=== PATIENT | female | born 1995 ===

== ENCOUNTER 2018-07-17 01:55 | Emergency (ER) | payer OTHER ==
[2018-07-17 02:03] VITALS: BMI 29.2
[2018-07-17 02:09] VITALS: RESP 18; TEMP 98.4; O2SAT 99
--- NOTE | 2018-07-17 02:50 | ED PDOC ---
HPI: General Adult Time Seen by Provider: 07/17/18 02:10 Chief Complaint (Nursing): Anxiety Chief Complaint (Provider): sob/cough x 1 month History Per: Patient (22 y/o female here with cough x 1 month associated with sob. Patient states she has a h/o asthma but has been using other peoples' inhalers. Denies any fevers/chills.) Past Medical History Reviewed: Historical Data, Nursing Documentation, Vital Signs Vital Signs: Last Vital Signs Temp 98.4 F 07/17/18 02:03 Pulse 103 H 07/17/18 02:03 Resp 18 07/17/18 02:03 BP 140/80 07/17/18 02:03 Pulse Ox 99 07/17/18 02:03 - Medical History PMH: Anxiety, Asthma, Gastritis - Family History Family History: States: Unknown Family Hx - Home Medications Home Medications: Ambulatory Orders Medication Instructions Recorded Ciprofloxacin HCl [Cipro] 500 mg PO BID #20 tab 05/07/17 Naproxen [Naprosyn] 500 mg PO Q12H #20 tab 05/07/17 Albuterol Sulfate [Proair Hfa] 2 puff IH Q6H #1 inh 10/13/17 Famotidine [Pepcid] 20 mg PO BID #28 tab 10/13/17 Ondansetron [Zofran] 4 mg PO Q8H #9 tab 10/13/17 Albuterol Sulfate [Proair Hfa] 2 puff IH Q6H PRN #1 inh 01/26/18 Amoxicillin/Clavulanate [Augmentin 1 tab PO BID #20 tab 01/26/18 500 MG-125 MG] Naproxen [Anaprox DS] 550 mg PO BID PRN #30 tab 01/26/18 Acetaminophen [Tylenol Extra 1,000 mg PO Q6 PRN #100 tablet 01/31/18 Strength] Famotidine [Pepcid] 40 mg PO DAILY PRN #14 tab 01/31/18 Nitrofurantoin Macrocrystals 1 cap PO BID #14 cap 01/31/18 [Macrobid] Ondansetron ODT [Zofran ODT] 1 odt PO Q6 PRN #20 odt 01/31/18 Levalbuterol Tartrate [Xopenex Hfa] 2 puff IH Q6 PRN #1 hfa.aer.ad 07/17/18 Prednisone [Deltasone] 2 tab PO DAILY #10 tablet 07/17/18 - Allergies Allergies/Adverse Reactions: Allergies Allergy/AdvReac Type Severity Reaction Status Date / Time shellfish derived Allergy RASH Verified 07/17/18 02:02 Review of Systems ROS Statement: Except As Marked, All Systems Reviewed And Found Negative Respiratory: Positive for: Cough Physical Exam - Reviewed Nursing Documentation Reviewed: Yes Vital Signs Reviewed: Yes - Physical Exam Appears: Positive for: Well, Non-toxic, No Acute Distress Head Exam: Positive for: ATRAUMATIC, NORMAL INSPECTION, NORMOCEPHALIC Skin: Positive for: Normal Color, Warm, DRY Eye Exam: Positive for: EOMI, Normal appearance, PERRL ENT: Positive for: Normal ENT Inspection Neck: Positive for: Normal, Painless ROM Cardiovascular/Chest: Positive for: Regular Rate, Rhythm Respiratory: Positive for: CNT, Normal Breath Sounds Gastrointestinal/Abdominal: Positive for: Normal Exam, Soft Back: Positive for: Normal Inspection Extremity: Positive for: Normal ROM Neurologic/Psych: Positive for: Alert, Oriented - ECG O2 Sat by Pulse Oximetry: 99 - Progress ED Course And Treament: tylenol 975mg x 1 dose for headache Disposition - Clinical Impression Clinical Impression: Cough, Asthma - Patient ED Disposition Is Patient to be Admitted: No - Disposition Referrals: [facility] [Outside] Disposition: Routine/Home Disposition Time: 02:48 Condition: FAIR Prescriptions: Levalbuterol Tartrate [Xopenex Hfa] 2 puff IH Q6 PRN #1 hfa.aer.ad PRN Reason: Cough Prednisone [Deltasone] 2 tab PO DAILY #10 tablet Instructions: Asthma, Adult (DC), Cough, Adult (DC)
[2018-07-17 04:03] VITALS: BP 119/70; PULSE 75
== END 2018-07-17 03:57 | disposition home or self-care (01) ==
LOC: H.ER 01:55
DX: R05 Cough (principal); J45.909 Unspecified asthma, uncomplicated

== ENCOUNTER 2018-08-16 20:43 | Emergency (ER) | payer OTHER ==
[2018-08-16 20:44] VITALS: BMI 29.2
[2018-08-16 20:51] VITALS: BP 135/81; PULSE 79; RESP 17; TEMP 98.3; O2SAT 99
--- NOTE | 2018-08-16 21:56 | ED PDOC ---
HPI: Influenza Time Seen by Provider: 08/16/18 21:15 Chief Complaint: Cough, Cold, Congestion Chief Complaint (Provider): Cough, Cold, Congestion History Per: Patient Exam Limitations: no limitations Onset/Duration Of Symptoms: Days (x2 months) Hx Influenza Vaccination: No Additional complaint(s):: Chanda Gold is a 22 year old female who has a past medical history of asthma, who presents to the emergency department complaining of cough, onset x2 months, right shoulder pain and lower back pain. Patient states she was seen in ED x1 month ago and was treated for asthma exacerbation with some improvements in the cough but it still persists. She also reports to have occasional chest pain with coughing, intermittent shortness of breath usually related to her anxiety, subjective fever this morning and chills. Patient also complains of right shoulder pain that began x2 days ago after attempting to lift a bag. She was unable to raise arm past shoulder level and she has not taken any medications for the pain. Patient further endorses lower back pain since yesterday that is worse with bending forward. She states its a chronic issue that got worse since yesterday. Denies sputum production, night sweats, nausea, vomiting, diarrhea numbness, tingling in upper or lower extremities or sick contact. PMD: No provider Past Medical History Reviewed: Historical Data, Nursing Documentation, Vital Signs Vital Signs: Last Vital Signs Temp 98.3 F 08/16/18 20:46 Pulse 79 08/16/18 20:46 Resp 17 08/16/18 20:46 BP 135/81 08/16/18 20:46 Pulse Ox 99 08/16/18 20:46 - Medical History PMH: Anxiety, Asthma, Gastritis - Surgical History Surgical History: No Surg Hx - Family History Family History: States: Unknown Family Hx - Home Medications Home Medications: Ambulatory Orders Medication Instructions Recorded Ciprofloxacin HCl [Cipro] 500 mg PO BID #20 tab 05/07/17 Naproxen [Naprosyn] 500 mg PO Q12H #20 tab 05/07/17 Albuterol Sulfate [Proair Hfa] 2 puff IH Q6H #1 inh 10/13/17 Famotidine [Pepcid] 20 mg PO BID #28 tab 10/13/17 Ondansetron [Zofran] 4 mg PO Q8H #9 tab 10/13/17 Albuterol Sulfate [Proair Hfa] 2 puff IH Q6H PRN #1 inh 01/26/18 Amoxicillin/Clavulanate [Augmentin 1 tab PO BID #20 tab 01/26/18 500 MG-125 MG] Naproxen [Anaprox DS] 550 mg PO BID PRN #30 tab 01/26/18 Acetaminophen [Tylenol Extra 1,000 mg PO Q6 PRN #100 tablet 01/31/18 Strength] Famotidine [Pepcid] 40 mg PO DAILY PRN #14 tab 01/31/18 Nitrofurantoin Macrocrystals 1 cap PO BID #14 cap 01/31/18 [Macrobid] Ondansetron ODT [Zofran ODT] 1 odt PO Q6 PRN #20 odt 01/31/18 Levalbuterol Tartrate [Xopenex Hfa] 2 puff IH Q6 PRN #1 hfa.aer.ad 07/17/18 Prednisone [Deltasone] 2 tab PO DAILY #10 tablet 07/17/18 Cyclobenzaprine [Cyclobenzaprine 10 mg PO Q8 PRN 5 Days tab 08/16/18 HCl] Ibuprofen [Motrin Tab] 600 mg PO Q6H PRN 7 Days tab 08/16/18 - Allergies Allergies/Adverse Reactions: Allergies Allergy/AdvReac Type Severity Reaction Status Date / Time shellfish derived Allergy RASH Verified 07/17/18 02:02 Review of Systems ROS Statement: Except As Marked, All Systems Reviewed And Found Negative Constitutional: Positive for: Fever, Chills. Negative for: Sweats Respiratory: Positive for: Cough. Negative for: Sputum Gastrointestinal: Negative for: Nausea, Vomiting, Diarrhea Musculoskeletal: Positive for: Shoulder Pain, Back Pain Neurological: Negative for: Numbness (tingling ) Physical Exam - Reviewed Nursing Documentation Reviewed: Yes Vital Signs Reviewed: Yes - Physical Exam Appears: Positive for: No Acute Distress Cardiovascular/Chest: Positive for: Regular Rate, Rhythm. Negative for: Murmur Respiratory: Positive for: Normal Breath Sounds. Negative for: Respiratory Distress Back: Positive for: Other (pain with flexion of eren back; decreased ROM; no pain with extension ). Negative for: Vertebral Tenderness Extremity: Positive for: Other (Pain on palpation on right superior shoulder from neck to arm; decreased ROM with flexion and abduction at the shoulder; ) Neurologic/Psych: Positive for: Other (sensation intact bilateral upper extremities ) Medical Decision Making Medical Decision Making: Time: 21:15 Plan: --Toradol 30 mg IM --Flexeril 10 mg PO --Right shoulder x-ray: prelim read by me, no fracture or dislocation appreciated. --Chest x-ray: prelim read by me, no active disease noted --Urine Scribe Attestation: Documented by Isaias Harris, acting as a scribe for Ranjana Shankar PA-C. Provider Scribe Attestation: All medical record entries made by the Scribe were at my direction and personally dictated by me. I have reviewed the chart and agree that the record accurately reflects my personal performance of the history, physical exam, medical decision making, and the department course for this patient. I have also personally directed, reviewed, and agree with the discharge instructions and disposition. - ECG O2 Sat by Pulse Oximetry: 99 Disposition - Clinical Impression Clinical Impression: Shoulder pain, right, Low back pain - Patient ED Disposition Is Patient to be Admitted: No Counseled Patient/Family Regarding: Studies Performed, Diagnosis, Need For Followup, Rx Given - Disposition Referrals: [facility] [Outside] [facility] [Outside] Disposition: Routine/Home Disposition Time: 23:18 Condition: STABLE Additional Instructions: Use Ibuprofen and Flexeril for pain. Use Albuterol nebulizer for your cough as may be related to your asthma. Prescriptions: Cyclobenzaprine [Cyclobenzaprine HCl] 10 mg PO Q8 PRN 5 Days tab PRN Reason: Pain, Moderate (4-7) Ibuprofen [Motrin Tab] 600 mg PO Q6H PRN 7 Days tab PRN Reason: Pain, Moderate (4-7) Instructions: Low Back Pain (DC), Shoulder Pain (DC) Forms: [facility] (Greek), [facility] ED School/Work Excuse Print Language: ERITREAN
--- NOTE | 2018-08-17 09:32 | RAD ---
Date of service: 08/16/2018 PROCEDURE: Radiographs of the Right Shoulder HISTORY: Right shoulder pain x 2 days COMPARISON: No prior. FINDINGS: BONES: No fracture. An incidental sub cm benign-appearing bone island projects over the right humeral head JOINTS: Normal. Glenohumeral and acromioclavicular joints preserved. No osteoarthritis. SOFT TISSUES: Normal. OTHER FINDINGS: None. IMPRESSION: Normal radiographs of the right shoulder.
--- NOTE | 2018-08-17 09:33 | RAD ---
Date of service: 08/16/2018 HISTORY: shortness of breath, cough COMPARISON: 01/30/2018 TECHNIQUE: Chest PA and lateral FINDINGS: LUNGS: No active pulmonary disease. PLEURA: No significant pleural effusion identified. No pneumothorax apparent. CARDIOVASCULAR: No aortic atherosclerotic calcification present. Normal cardiac size. No pulmonary vascular congestion. OSSEOUS STRUCTURES: No significant abnormalities. VISUALIZED UPPER ABDOMEN: Normal. OTHER FINDINGS: None. IMPRESSION: No active disease. No interval pathology noted.
== END 2018-08-17 | disposition home or self-care (01) ==
LOC: H.ER 20:43
DX: M25.511 Pain in right shoulder (principal); M54.5 Low back pain; R05 Cough
CPT/HCPCS: 71046; 73030; 96372; 99282; J1885

== ENCOUNTER 2018-09-27 02:21 | Emergency (ER) | payer SELFPAY ==
[2018-09-27 02:21] VITALS: BMI 29.2
[2018-09-27 02:40] VITALS: RESP 16
[2018-09-27] MEDS ORDERED: Albuterol 0.083% Inhal Sol (2.5 mg/3 mL) UD INH ONE (02:57)
--- NOTE | 2018-09-27 03:03 | ED PDOC ---
HPI: Chest Pain Time Seen by Provider: 09/27/18 02:35 Chief Complaint (Nursing): Chest Pain Chief Complaint (Provider): Chest Pain History Per: Patient History/Exam Limitations: no limitations Onset/Duration Of Symptoms: Mins Current Symptoms Are (Timing): Still Present Additional Complaint(s): 22 y/o female with a PMHx of a heart murmurs as a child and chronic anxiety presents to the ED for evaluation of a anxiety causing chest pain, onset earlier tonight. Patient reports of developing anxiety and chest pain tonight while watching TV. Patient states she is unsure what may have triggered the anxiety. Patient believes chest pain could be due to anxiety. On arrival to the ED, patient reports chest pain has improved slightly, rating it as a 6/10 currently. Patient additionally reports of a non-productive cough for the past few days. Of note, patient states she is in the process of getting an outpatient MD and Psychiatrist. Otherwise, patient denies fever, vomiting, diarrhea, suicidal ideation, homicidal ideation and taking medications prior to arrival. PMD: no provider Past Medical History Reviewed: Historical Data, Nursing Documentation, Vital Signs Vital Signs: Last Vital Signs Temp 99 F 09/27/18 02:37 Pulse 88 09/27/18 02:37 Resp 16 09/27/18 02:37 BP Pulse Ox 99 09/27/18 02:37 - Medical History PMH: Anxiety, Asthma, Gastritis Other PMH: Heart Murmur as child - Surgical History Surgical History: No Surg Hx - Family History Family History: States: Unknown Family Hx - Social History Current smoker - smoking cessation education provided: No Alcohol: None Drugs: Denies - Immunization History Hx Influenza Vaccination: No - Home Medications Home Medications: Ambulatory Orders Medication Instructions Recorded Ciprofloxacin HCl [Cipro] 500 mg PO BID #20 tab 05/07/17 Naproxen [Naprosyn] 500 mg PO Q12H #20 tab 05/07/17 Albuterol Sulfate [Proair Hfa] 2 puff IH Q6H #1 inh 10/13/17 Famotidine [Pepcid] 20 mg PO BID #28 tab 10/13/17 Ondansetron [Zofran] 4 mg PO Q8H #9 tab 10/13/17 Albuterol Sulfate [Proair Hfa] 2 puff IH Q6H PRN #1 inh 01/26/18 Amoxicillin/Clavulanate [Augmentin 1 tab PO BID #20 tab 01/26/18 500 MG-125 MG] Naproxen [Anaprox DS] 550 mg PO BID PRN #30 tab 01/26/18 Famotidine [Pepcid] 40 mg PO DAILY PRN #14 tab 01/31/18 Nitrofurantoin Macrocrystals 1 cap PO BID #14 cap 01/31/18 [Macrobid] Ondansetron ODT [Zofran ODT] 1 odt PO Q6 PRN #20 odt 01/31/18 RX: Acetaminophen [Tylenol Extra 1,000 mg PO Q6 PRN #100 tablet 01/31/18 Strength] Levalbuterol Tartrate [Xopenex Hfa] 2 puff IH Q6 PRN #1 hfa.aer.ad 07/17/18 RX: Prednisone [Deltasone] 2 tab PO DAILY #10 tablet 07/17/18 Cyclobenzaprine [Cyclobenzaprine 10 mg PO Q8 PRN 5 Days tab 08/16/18 HCl] RX: Albuterol 0.083% [Albuterol 3 ml IH Q6 PRN 7 Days neb 08/16/18 0.083% Inhal Maureen (2.5 mg/3 ml) UD] RX: Ibuprofen [Motrin Tab] 600 mg PO Q6H PRN 7 Days tab 08/16/18 RX: Nebulizer Accessories [Adult 1 each MC ONCE PRN #1 each 08/16/18 Aerosol Mask] RX: Nebulizer [Aeroneb Go 1 each MC Q6H PRN #1 each 08/16/18 Nebulizer] - Allergies Allergies/Adverse Reactions: Allergies Allergy/AdvReac Type Severity Reaction Status Date / Time shellfish derived Allergy RASH Verified 09/27/18 02:37 ALEXA Risk Score for UA/NSTEMI - ALEXA Risk Score Age > 64: NO 3 or more CAD Risk Factors: NO Known CAD (Stenosis greater than 50%): NO Aspirin use in past 7 days: NO Severe Angina: NO EKG ST changes greater than 0.5mm: NO Positive Cardiac Marker: NO ALEXA Score: 0 Risk %: 5% Wells Criteria for PE - Wells Criteria for Pulmonary Embolism Clinical Signs and Symptoms of DVT: No P.E is #1 Diagnosis, or Equally Likely: No Heart Rate >100: No Immobilization at least 3 days;Surgery previous 4 weeks: No Previous, objectively diagnosed PE or DVT: No Hemoptysis: No Malignancy w/treatment within 6 months, or palliative: No Total Score: 0 Review of Systems ROS Statement: Except As Marked, All Systems Reviewed And Found Negative Constitutional: Negative for: Fever Cardiovascular: Positive for: Chest Pain Respiratory: Positive for: Cough Gastrointestinal: Negative for: Vomiting, Diarrhea Psych: Positive for: Anxiety. Negative for: Suicidal ideation Physical Exam - Reviewed Nursing Documentation Reviewed: Yes Vital Signs Reviewed: Yes - Physical Exam Appears: Positive for: No Acute Distress Head Exam: Positive for: ATRAUMATIC, NORMOCEPHALIC Skin: Positive for: Normal Color, Warm, Dry Eye Exam: Positive for: Normal appearance, EOMI, PERRL ENT: Positive for: Normal ENT Inspection Neck: Positive for: Normal, Painless ROM Cardiovascular/Chest: Positive for: Regular Rate, Rhythm. Negative for: Murmur Respiratory: Positive for: Normal Breath Sounds. Negative for: Respiratory Distress Gastrointestinal/Abdominal: Positive for: Normal Exam, Soft. Negative for: Tenderness Back: Positive for: Normal Inspection. Negative for: L CVA Tenderness, R CVA Tenderness, Vertebral Tenderness Extremity: Positive for: Normal ROM. Negative for: Pedal Edema, Deformity Neurologic/Psych: Positive for: Alert, Oriented. Negative for: Motor/Sensory Deficits - Laboratory Results Result Diagrams: 09/27/18 03:18 09/27/18 03:18 - ECG ECG Rhythm: Positive for: Sinus Rhythm. Negative for: ST/T Changes Rate: 74 O2 Sat by Pulse Oximetry: 99 (RA) Pulse Ox Interpretation: Normal Medical Decision Making Medical Decision Making: Time: 256 Plan: chest pain, anxiety -- CMP -- Troponin I -- CBC with Differentials -- CXR Portable XR -- Albuterol 0.083% 2.5 mg INH -- Peak Flow Pre/Post Tx -- Influenza A B Time: 456 -- Labs reviewed and demonstrate a negative troponin. BUN creatinine levels are slightly elevated. pt aware. in case its due to dehydration, Sodium Chloride 0.9% IV 999 mls/hr given. -- CXR as read by assembly instructions writer demonstrates clear, no infiltrates. -- Of note, patient has no cardiac or PE risk factors. No immediate family members with any cardiac disease. Patient denies any leg pain and any history of Pulmonary Embolism or DVT. thus is unlikely any concerning chest pain. is likely anxiety Scribe Attestation: Documented by Chaim Abreu, acting as a scribe for Leonor Griffith MD. Provider Scribe Attestation: All medical record entries made by the Scribe were at my direction and personally dictated by me. I have reviewed the chart and agree that the record accurately reflects my personal performance of the history, physical exam, medical decision making, and the department course for this patient. I have also personally directed, reviewed, and agree with the discharge instructions and disposition. Disposition - Clinical Impression Clinical Impression: Atypical chest pain, Anxiety - Patient ED Disposition Is Patient to be Admitted: No Counseled Patient/Family Regarding: Studies Performed, Diagnosis, Need For Followup - Disposition Disposition: Routine/Home Disposition Time: 06:00 Condition: IMPROVED Additional Instructions: follow up with your doctor this week follow up regarding your kidney function lab results return to the ED with any worsening or concerning symptoms Instructions: Chest Pain That Is Not Caused by the Heart (DC), Anxiety, Adult (DC) Forms: [employer] (Wallisian)
[2018-09-27 03:36] LABS: BASO % 0.7 % (0.0-2.0); EOS # 0.3 K/uL (0.0-0.7); EOS % 4.6 % (0.0-4.0); HEMOGLOBIN 13.1 g/dL (12.0-16.0); LYMPH # 2.4 K/uL (1.0-4.3); LYMPH % 42.3 % (20.0-40.0); MEAN CELL VOLUME 87.9 fl (81.0-99.0); MEAN CORPUSCULAR HEMOGLOBIN 28.3 pg (27.0-31.0); MEAN CORPUSCULAR HGB CONC 32.2 g/dL (33.0-37.0); MEAN PLATELET VOLUME 10.1 fl (7.2-11.7); MONO # 0.4 K/uL (0.0-0.8); MONO % 7.9 % (0.0-10.0); NEUT # 2.5 K/uL (1.8-7.0); NEUT % 44.5 % (50.0-75.0); NRBC % 0.2 % (0.0-0.0); RBC 4.62 Mil/uL (3.80-5.20); RED CELL DISTRIBUTION WIDTH 13.5 % (11.5-14.5); WHITE BLOOD COUNT 5.6 K/uL (4.8-10.8)
[2018-09-27 03:49] LABS: ALB/GLOB RATIO 1.2 (1.0-2.1); ALBUMIN 4.1 g/dL (3.5-5.0); ALT/SGPT 17 U/L (9-52); AST/SGOT 20 U/L (14-36); BLOOD UREA NITROGEN 18 mg/dl (7-17); CALCIUM 9.2 mg/dL (8.4-10.2); GFR NON-AFRICAN AMERICAN 51
[2018-09-27] MEDS ORDERED: Sodium Chloride 0.9% 1,000 ML IV STA (04:52)
[2018-09-27 05:18] VITALS: PULSE 74
[2018-09-27 06:28] VITALS: BP 106/61; TEMP 97.9
--- NOTE | 2018-09-27 15:36 | RAD ---
Date of service: 09/27/2018 HISTORY: chest pain COMPARISON: Comparison chest dated 08/16/2018 FINDINGS: LUNGS: No active pulmonary disease. PLEURA: No significant pleural effusion identified, no pneumothorax apparent. CARDIOVASCULAR: No aortic atherosclerotic calcification present. Normal cardiac size. No pulmonary vascular congestion. OSSEOUS STRUCTURES: No significant abnormalities. VISUALIZED UPPER ABDOMEN: Normal. OTHER FINDINGS: None. IMPRESSION: No active disease.
[2018-09-28 00:08] VITALS: O2SAT 99
== END 2018-09-27 06:27 | disposition home or self-care (01) ==
LOC: H.ER 02:21
DX: R07.89 Other chest pain (principal); F41.9 Anxiety disorder, unspecified; R79.89 Other specified abnormal findings of blood chemistry; E86.0 Dehydration
CPT/HCPCS: 71045; 80053; 81025; 84484; 85025; 87804; 99284; J7030

== ENCOUNTER 2018-11-25 19:08 | Emergency (ER) | payer SELFPAY ==
[2018-11-25 19:09] VITALS: BMI 29.2
[2018-11-25 19:30] VITALS: RESP 16; O2SAT 99
[2018-11-25] MEDS ORDERED: Sodium Chloride 0.9% 1,000 ML IV STA (19:57)
--- NOTE | 2018-11-25 19:59 | ED PDOC ---
HPI:Nausea, Vomiting, Diarrhea Time Seen by Provider: 11/25/18 19:38 Chief Complaint (Nursing): GI Problem Chief Complaint (Provider): Nausea and Vomiting History Per: Patient History/Exam Limitations: no limitations Onset/Duration Of Symptoms: Days (x10) Current Symptoms Are (Timing): Still Present Associated Symptoms: Nausea, Vomiting Additional Complaint(s): 23 year old female with a history of asthma presents to the ED with nausea and vomiting onset x10 days. Patient denies any abdominal pain, chest pain, back pain, vaginal bleeding, vaginal discomfort, or any urinary symptoms. She denies taking any medications for symptoms. Patient is sexually active, has unprotected sex and is unsure if she is . Patient just finished her period. PMD: none provided Allergies: Shellfish Abnormal Vaginal Bleeding: No Past Medical History Reviewed: Historical Data, Nursing Documentation, Vital Signs Vital Signs: Last Vital Signs Temp 98.6 F 11/25/18 19:28 Pulse 89 11/25/18 19:28 Resp 16 11/25/18 19:28 BP 122/75 11/25/18 19:28 Pulse Ox 99 11/25/18 19:28 - Medical History PMH: Anxiety, Asthma, Gastritis Denies: Chronic Kidney Disease - Surgical History Surgical History: No Surg Hx - Family History Family History: States: Unknown Family Hx - Immunization History Hx Influenza Vaccination: No - Home Medications Home Medications: Ambulatory Orders Medication Instructions Recorded Ciprofloxacin HCl [Cipro] 500 mg PO BID #20 tab 05/07/17 Naproxen [Naprosyn] 500 mg PO Q12H #20 tab 05/07/17 Albuterol Sulfate [Proair Hfa] 2 puff IH Q6H #1 inh 10/13/17 Famotidine [Pepcid] 20 mg PO BID #28 tab 10/13/17 Ondansetron [Zofran] 4 mg PO Q8H #9 tab 10/13/17 Albuterol Sulfate [Proair Hfa] 2 puff IH Q6H PRN #1 inh 01/26/18 Amoxicillin/Clavulanate [Augmentin 1 tab PO BID #20 tab 01/26/18 500 MG-125 MG] Naproxen [Anaprox DS] 550 mg PO BID PRN #30 tab 01/26/18 Acetaminophen [Tylenol Extra 1,000 mg PO Q6 PRN #100 tablet 01/31/18 Strength] Famotidine [Pepcid] 40 mg PO DAILY PRN #14 tab 01/31/18 Nitrofurantoin Macrocrystals 1 cap PO BID #14 cap 01/31/18 [Macrobid] Ondansetron ODT [Zofran ODT] 1 odt PO Q6 PRN #20 odt 01/31/18 Levalbuterol Tartrate [Xopenex Hfa] 2 puff IH Q6 PRN #1 hfa.aer.ad 07/17/18 Prednisone [Deltasone] 2 tab PO DAILY #10 tablet 07/17/18 Albuterol 0.083% [Albuterol 0.083% 3 ml IH Q6 PRN 7 Days neb 08/16/18 Inhal Maureen (2.5 mg/3 ml) UD] Cyclobenzaprine [Cyclobenzaprine 10 mg PO Q8 PRN 5 Days tab 08/16/18 HCl] Ibuprofen [Motrin Tab] 600 mg PO Q6H PRN 7 Days tab 08/16/18 Nebulizer Accessories [Adult 1 each MC ONCE PRN #1 each 08/16/18 Aerosol Mask] Nebulizer [Aeroneb Go Nebulizer] 1 each MC Q6H PRN #1 each 08/16/18 Nitrofurantoin Macrocrystals 100 mg PO BID #10 cap 11/25/18 [Macrobid] Ondansetron ODT [Zofran ODT] 4 mg PO TID PRN #8 odt 11/25/18 - Allergies Allergies/Adverse Reactions: Allergies Allergy/AdvReac Type Severity Reaction Status Date / Time shellfish derived Allergy RASH Verified 11/25/18 19:31 Review of Systems ROS Statement: Except As Marked, All Systems Reviewed And Found Negative Constitutional: Negative for: Fever, Chills Cardiovascular: Negative for: Chest Pain Respiratory: Negative for: Shortness of Breath Gastrointestinal: Positive for: Nausea, Vomiting. Negative for: Abdominal Pain, Diarrhea Genitourinary Female: Negative for: Dysuria, Hematuria Musculoskeletal: Negative for: Back Pain Physical Exam - Reviewed Nursing Documentation Reviewed: Yes Vital Signs Reviewed: Yes - Physical Exam Appears: Positive for: Non-toxic, No Acute Distress Head Exam: Positive for: ATRAUMATIC, NORMOCEPHALIC Skin: Positive for: Normal Color, Warm, Dry Eye Exam: Positive for: EOMI, Normal appearance, PERRL Neck: Positive for: Normal Cardiovascular/Chest: Positive for: Regular Rate, Rhythm. Negative for: Murmur Respiratory: Positive for: Normal Breath Sounds. Negative for: Respiratory Distress Gastrointestinal/Abdominal: Positive for: Normal Exam, Soft. Negative for: Tenderness Back: Positive for: Normal Inspection. Negative for: L CVA Tenderness, R CVA Tenderness Extremity: Positive for: Normal ROM (upper and lower). Negative for: Pedal Edema, Deformity Neurologic/Psych: Positive for: Alert, Oriented (x3) - Laboratory Results Result Diagrams: 11/25/18 20:25 11/25/18 20:25 Lab Results: no acute - ECG O2 Sat by Pulse Oximetry: 99 (RA) Pulse Ox Interpretation: Normal - Progress ED Course And Treament: 1001: Stable. AAOx3. Pain free. Tolerate po. Fu with pcp. Uti. Medical Decision Making Medical Decision Making: Time: 1956 Plan: --BMP --urine preg --urine dip --CBC --NS --Zofran 4 mg IV Scribe Attestation: Documented by Preethi Almanza, acting as a scribe for Blanco Franco MD. Provider Scribe Attestation: All medical record entries made by the Scribe were at my direction and personally dictated by me. I have reviewed the chart and agree that the record accurately reflects my personal performance of the history, physical exam, medical decision making, and the department course for this patient. I have also personally directed, reviewed, and agree with the discharge instructions and disposition. Disposition - Clinical Impression Clinical Impression: UTI (urinary tract infection), Vomiting - Patient ED Disposition Is Patient to be Admitted: No Counseled Patient/Family Regarding: Studies Performed, Diagnosis, Need For Followup, Rx Given - [facility]position [facility] - [facility]18 Disposition: Routine/Home Disposition Time: 22:02 Condition: STABLE Additional Instructions: Return if not better in 3 days. Prescriptions: Nitrofurantoin Macrocrystals [Macrobid] 100 mg PO BID #10 cap Ondansetron ODT [Zofran ODT] 4 mg PO TID PRN #8 odt PRN Reason: Nausea/Vomiting Instructions: Urinary Tract Infections in Adults, Nausea and Vomiting, Adult (DC) Forms: [employer] (Austrian)
[2018-11-25 20:47] LABS: BASO # 0.1 K/uL (0.0-0.2); EOS % 0.6 % (0.0-4.0); HEMOGLOBIN 14.5 g/dL (12.0-16.0); LYMPH # 2.4 K/uL (1.0-4.3); MEAN CELL VOLUME 86.1 fl (81.0-99.0); MEAN CORPUSCULAR HEMOGLOBIN 28.5 pg (27.0-31.0); MEAN CORPUSCULAR HGB CONC 33.1 g/dL (33.0-37.0); MEAN PLATELET VOLUME 10.3 fl (7.2-11.7); MONO # 0.5 K/uL (0.0-0.8); MONO % 6.8 % (0.0-10.0); NEUT # 3.6 K/uL (1.8-7.0); NEUT % 54.6 % (50.0-75.0); NRBC % 0.2 % (0.0-0.0); RBC 5.1 Mil/uL (3.80-5.20); RED CELL DISTRIBUTION WIDTH 13.9 % (11.5-14.5); WHITE BLOOD COUNT 6.6 K/uL (4.8-10.8)
[2018-11-25 21:02] LABS: BLOOD UREA NITROGEN 12 mg/dl (7-17); CALCIUM 9.8 mg/dL (8.4-10.2); GFR NON-AFRICAN AMERICAN > 60
[2018-11-26 01:33] VITALS: BP 119/73; PULSE 75; TEMP 98.3
--- NOTE | 2018-12-01 06:19 | CARD ---
APPROVED REPORT Date of service: 11/25/2018 EKG Measurement Heart [id number] <Conclusion> Normal sinus rhythm with sinus arrhythmia Normal ECG
== END 2018-11-25 22:20 | disposition home or self-care (01) ==
LOC: H.ER 19:08
DX: N39.0 Urinary tract infection, site not specified (principal); R11.10 Vomiting, unspecified
CPT/HCPCS: 80048; 85025; 93005; 96360; 99284; J2405; J7030